=== PATIENT | female | born 1980 | race Caucasian/White ===

== ENCOUNTER 2020-09-11 11:05 | Outpatient (REF) | payer BC, SELFPAY ==
--- NOTE | 2020-09-11 | US_ITS ---
EXAMINATION: ULTRASOUND PELVIS CLINICAL INFORMATION: Complex cyst left ovary. Followup. COMPARISON: Ultrasound pelvis 06/05/2020. TECHNIQUE: Routine transabdominal and transvaginal ultrasound of the pelvis is performed. FINDINGS: The uterus is anteverted, retroflexed measuring 9.1 cm in length, 4.3 cm in AP and 5.4 cm in transverse dimension. No focal lesion seen. The cervix appears unremarkable. The right ovary measures 2.2 x 1.8 x 1.4 cm and volume 2.9 mL. Previously it measured 2.5 x 1.6 x 1.3 cm and volume 2.7 mL. It appears unremarkable. The left ovary measures 5.0 x 4.7 x 3.8 cm and volume 46.8 mL. There is a complex cyst measuring 2.3 x 2.0 x 2.9 cm. Previously cyst measured 1.1 x 1.5 x 1.2 cm and the left ovary measured 4.2 x 4.4 x 2.4 cm and volume 23.2 mL. IMPRESSION: Increase in left ovarian complex cyst now measuring 2.9 cm compared to a largest diameter 1.2 cm on the previous study. It is heterogeneous and slightly irregularly-shaped. Recommend continued followup. Uterus and the right ovary is unremarkable.
== END 2020-09-11 11:06 | disposition home or self-care (01) ==
LOC: HO.US 11:05
PROVIDERS: Visit Provider Obstetrics & Gynecology
DX: N83.292 Other ovarian cyst, left side (principal)
CPT/HCPCS: 76830; 76856

== ENCOUNTER → 2020-09-24 08:25 | Outpatient (BNVA) | payer BC, SELFPAY | PROVIDERS: Visit Provider Advanced Practice Midwife | DX: Z76.89 Persons encountering health services in other specified circumstances (principal) ==

== ENCOUNTER → 2020-09-27 11:35 | Outpatient (BNVA) | payer BC, SELFPAY | PROVIDERS: Visit Provider Obstetrics & Gynecology | DX: Z76.89 Persons encountering health services in other specified circumstances (principal) ==